=== PATIENT | female | born 2000 | race Asian ===

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

== ENCOUNTER 2023-01-16 17:33 | Inpatient (IN) | payer MEDICAID ==
[~2023-01-16] VITALS: Ht 160 cm; Wt 97.8 kg
[2023-01-16 18:26] LABS: Basophils # (auto) 0 10 ^3/uL (0-0.2); Basophils % (auto) 0.3 % (0.0-2.0); Eosinophils # (auto) 0 10 ^3/uL (0-0.8); Hemoglobin 12.3 g/dL (12.2-16.2); Lymphocytes # (auto) 0.6 10 ^3/uL (0.4-5.4); Lymphocytes % (auto) 10.3 % (10.0-50.0); Mean Corpuscular Hemoglobin 26.5 pg (28.0-32.0); Mean Corpuscular Hgb Conc. 33.2 g/dL (32.0-36.0); Mean Corpuscular Volume 79.9 fL (80.0-100.0); Monocytes # (auto) 0.3 10 ^3/uL (0-1.3); Monocytes % (auto) 5.1 % (0.0-12.0); Neutrophils # (auto) 5.3 10 ^3/uL (1.6-8.6); Neutrophils % (auto) 84.3 % (37.0-80.0); Red Blood Cells 4.63 10^6/uL (4.0-5.20); Red Cell Distribution Width 15.4 % (11.8-14.3); White Blood Cell 6.3 10^3/uL (4.4-10.8)
[2023-01-16 18:38] LABS: Albumin 3.4 g/dL (3.4-5.0); Calcium 8.7 mg/dL (8.5-10.1)
[2023-01-16 18:41] LABS: BUN/Creatinine Ratio 5.7 (10.0-20.0); Bilirubin, Total 0.3 mg/dL (0.2-1.0); Total Protein 8.1 g/dL (6.4-8.2)
[2023-01-16 19:49] LABS: Urine Bacteria FEW /hpf (None Seen); Urine Blood Negative /uL (Negative); Urine Specific Gravity 1.017 (1.001-1.035); Urine WBC 1 /hpf (0 - 5)
[2023-01-16] MEDS ORDERED: HYDROmorphone HCL 2 MG/ML VL/or syr IM ONE (20:30)
[2023-01-16] MEDS ORDERED: ACETAMINOPHEN 500 MG TAB PO ONE (20:30)
[2023-01-16] MEDS ORDERED: ONDANSETRON ODT 4 MG TAB PO ONE (20:45)
[2023-01-16] MEDS ORDERED: SODIUM CHLORIDE 0.9% 1,000 ML IV ONE (20:45)
[2023-01-16] MEDS ORDERED: ONDANSETRON HCL 4 MG/2 ML VIAL IV PRN (21:30)
[2023-01-16] MEDS ORDERED: ACETAMINOPHEN 325 MG TAB PO PRN (21:30)
[2023-01-16] MEDS ORDERED: cefTRIAXone 1GM/50ML D5W 50 ML IV ONE (21:30)
[2023-01-16] MEDS ORDERED: MORPHINE SULFATE INJ 2 MG/ml SYRG IV PRN ×2 (21:30→22:45)
[2023-01-16] MEDS ORDERED: HYDROcodone-ACET 5/325MG TAB PO PRN (21:30)
[2023-01-16 21:48] LABS: INR 1.11 (0.9-1.15)
[2023-01-16] MEDS ORDERED: NITROGLYCERIN 0.4 MG SL TAB SL PRN (22:45)
[2023-01-16 23:13] VITALS: PULSE 84; RESP 14; O2SAT 95
[2023-01-17] VITALS (7 sets, daily range): BP systolic 97–117; BP diastolic 59–69; PULSE 73–96; RESP 14–18; TEMP 97.7–98.2; O2SAT 93–97
[2023-01-17] MEDS: D5W/SOD CHLO 0.9% 1,000 ML IV SCH ×2 (01:25→10:50)
[2023-01-17] MEDS ORDERED: TOPI25CA5 PO (05:14)
[2023-01-17] MEDS ORDERED: PARO30TA99 PO (05:14)
[2023-01-17] MEDS ORDERED: RISP4TAB25 PO (05:14)
[2023-01-17] MEDS ORDERED: BENZ0.5T19 PO (05:16)
[2023-01-17 06:11] LABS: Basophils # (auto) 0 10 ^3/uL (0-0.2); Eosinophils # (auto) 0 10 ^3/uL (0-0.8); Eosinophils % (auto) 0.2 % (0.0-7.0); Hemoglobin 11.6 g/dL (12.2-16.2); Lymphocytes # (auto) 1.2 10 ^3/uL (0.4-5.4); Monocytes # (auto) 0.5 10 ^3/uL (0-1.3)
[2023-01-17 06:14] LABS: Basophils % (auto) 0.1 % (0.0-2.0); Hematocrit 35.3 % (36.0-46.0); Lymphocytes % (auto) 24.3 % (10.0-50.0); Mean Corpuscular Hemoglobin 26.7 pg (28.0-32.0); Mean Corpuscular Hgb Conc. 32.7 g/dL (32.0-36.0); Mean Corpuscular Volume 81.7 fL (80.0-100.0); Monocytes % (auto) 10.2 % (0.0-12.0); Neutrophils # (auto) 3.3 10 ^3/uL (1.6-8.6); Neutrophils % (auto) 65.2 % (37.0-80.0); Red Blood Cells 4.33 10^6/uL (4.0-5.20); Red Cell Distribution Width 15.2 % (11.8-14.3)
[2023-01-17 06:41] LABS: Potassium 3.6 mmol/L (3.5-5.1)
[2023-01-17 06:49] LABS: Albumin 2.8 g/dL (3.4-5.0); Bilirubin, Total 0.2 mg/dL (0.2-1.0); Calcium 8.1 mg/dL (8.5-10.1); Total Protein 7.3 g/dL (6.4-8.2)
[2023-01-17] MEDS: cefTRIAXone 1GM/50ML D5W 50 ML IV SCH (12:31)
[2023-01-17] MEDS: RISPERIDONE 6 MG PO SCH (17:40)
[2023-01-17] MEDS ORDERED: RISPERIDONE 6 MG PO SCH (18:00)
[2023-01-17] MEDS: TOPIRAMATE 25 MG TAB PO SCH (21:58)
[2023-01-18] VITALS (7 sets, daily range): BP systolic 97–108; BP diastolic 60–68; PULSE 69–98; RESP 14–18; TEMP 97.4–98.6; O2SAT 93–98
[2023-01-18] MEDS: D5W/SOD CHLO 0.9% 1,000 ML IV SCH ×2 (00:07→13:30)
[2023-01-18] MEDS: BENZTROPINE MESY 0.5 MG TAB PO SCH (09:37)
[2023-01-18] MEDS: TOPIRAMATE 25 MG TAB PO SCH ×2 (09:37→21:03)
[2023-01-18] MEDS: PARoxetine 20 MG TAB PO SCH (09:37)
[2023-01-18] MEDS: cefTRIAXone 1GM/50ML D5W 50 ML IV SCH (09:37)
[2023-01-18] MEDS ORDERED: RISPERIDONE 6 MG PO SCH (10:00)
[2023-01-18 11:26] LABS: Basophils # (auto) 0 10 ^3/uL (0-0.2); Basophils % (auto) 0.3 % (0.0-2.0); Eosinophils # (auto) 0.1 10 ^3/uL (0-0.8); Hemoglobin 11.9 g/dL (12.2-16.2); Mean Corpuscular Volume 81.5 fL (80.0-100.0); Monocytes # (auto) 0.6 10 ^3/uL (0-1.3); Nucleated Red Blood Cells % 0.1 %; White Blood Cell 6.1 10^3/uL (4.4-10.8)
[2023-01-18 11:28] LABS: Eosinophils % (auto) 1.5 % (0.0-7.0); Hematocrit 37.1 % (36.0-46.0); Lymphocytes # (auto) 1.2 10 ^3/uL (0.4-5.4); Lymphocytes % (auto) 19.6 % (10.0-50.0); Mean Corpuscular Hemoglobin 26.2 pg (28.0-32.0); Mean Corpuscular Hgb Conc. 32.1 g/dL (32.0-36.0); Monocytes % (auto) 9.6 % (0.0-12.0); Neutrophils # (auto) 4.2 10 ^3/uL (1.6-8.6); Red Blood Cells 4.55 10^6/uL (4.0-5.20); Red Cell Distribution Width 14.8 % (11.8-14.3)
[2023-01-18] MEDS: RISPERIDONE 6 MG PO SCH (18:31)
[2023-01-19] MEDS: D5W/SOD CHLO 0.9% 1,000 ML IV SCH ×2 (02:50→10:49)
[2023-01-19 04:40] VITALS: BP 100/53; PULSE 60; RESP 14; TEMP 98.3; O2SAT 100
[2023-01-19 06:01] LABS: Basophils # (auto) 0 10 ^3/uL (0-0.2); Basophils % (auto) 0.3 % (0.0-2.0); Eosinophils # (auto) 0.3 10 ^3/uL (0-0.8); Eosinophils % (auto) 3.9 % (0.0-7.0); Hematocrit 37.5 % (36.0-46.0); Hemoglobin 12.2 g/dL (12.2-16.2); Lymphocytes # (auto) 2.2 10 ^3/uL (0.4-5.4); Lymphocytes % (auto) 32.6 % (10.0-50.0); Mean Corpuscular Hemoglobin 26.3 pg (28.0-32.0); Mean Corpuscular Hgb Conc. 32.5 g/dL (32.0-36.0); Mean Corpuscular Volume 81.1 fL (80.0-100.0); Monocytes % (auto) 14.5 % (0.0-12.0); Neutrophils # (auto) 3.2 10 ^3/uL (1.6-8.6); Neutrophils % (auto) 48.7 % (37.0-80.0); Nucleated Red Blood Cells % 0.1 %; Red Blood Cells 4.63 10^6/uL (4.0-5.20); Red Cell Distribution Width 15.2 % (11.8-14.3); White Blood Cell 6.7 10^3/uL (4.4-10.8)
[2023-01-19 08:00] VITALS: PULSE 63; PULSE 88; RESP 15; O2SAT 98
[2023-01-19 09:23] VITALS: BP 96/57; PULSE 88; RESP 15; TEMP 97.6; O2SAT 98
[2023-01-19] MEDS: cefTRIAXone 1GM/50ML D5W 50 ML IV SCH (10:12)
[2023-01-19] MEDS: TOPIRAMATE 25 MG TAB PO SCH (10:13)
[2023-01-19] MEDS: BENZTROPINE MESY 0.5 MG TAB PO SCH (10:14)
[2023-01-19] MEDS: PARoxetine 20 MG TAB PO SCH (10:18)
[2023-01-19 13:26] VITALS: BP 127/69; PULSE 106; RESP 16; TEMP 97.8; O2SAT 93
[2023-01-19 17:00] VITALS: BP 98/72; PULSE 94; RESP 16; TEMP 97.8; O2SAT 94
[2023-01-19 17:23] VITALS: BP 123/72; PULSE 94; RESP 16; TEMP 97.8; O2SAT 98
[2023-01-19] MEDS: RISPERIDONE 6 MG PO SCH (17:50)
== END 2023-01-19 18:40 | disposition home or self-care (01) | DRG 251 ==
LOC: ER 17:33 → TELE 22:34 → TELE-CENTR 01-17 02:17
PROVIDERS: ADMIT Family Medicine; ATTEND Family Medicine
DX: R10.9 Unspecified abdominal pain (principal); J90 Pleural effusion, not elsewhere classified; E86.0 Dehydration; I88.0 Nonspecific mesenteric lymphadenitis; F20.9 Schizophrenia, unspecified; F31.9 Bipolar disorder, unspecified
CPT/HCPCS: 36415; 74176; 76705; 80053; 81001; 81025; 83690; 84484; 85025; 85610; 86850; 86900; 86901; G0378; J0696; J2405; J7042; Q0162